=== PATIENT | female | born 1965 | race Caucasian/White ===

== ENCOUNTER 2023-11-13 14:17 | Emergency (ER) | payer OTHER ==
[~2023-11-13] VITALS: Ht 165.1 cm; Wt 99.8 kg
[2023-11-13 14:21] VITALS: BP 122/59; PULSE 57; RESP 20; TEMP 98.4; O2SAT 98
[2023-11-13] MEDS: CYCLOBENZAPRINE 10 MG TAB PO ONE (14:55)
[2023-11-13] MEDS: LIDOCAINE 5% 1 EA PATCH TP ONE (14:55)
[2023-11-13] MEDS: KETOROLAC 30 MG/ML VIAL IM ONE (14:55)
[2023-11-13] MEDS ORDERED: IBUP-2213 PO (17:32)
[2023-11-13] MEDS ORDERED: LID5T TP (17:32)
[2023-11-13] MEDS ORDERED: CYCL-711 PO (17:32)
[2023-11-13 18:02] VITALS: BP 110/50; PULSE 58; O2SAT 94
== END 2023-11-13 18:02 | disposition home or self-care (01) ==
LOC: MED 14:17
DX: S39.012A Strain of muscle, fascia and tendon of lower back, initial encounter (principal); S70.02XA Contusion of left hip, initial encounter; M79.662 Pain in left lower leg; Z79.899 Other long term (current) drug therapy; W01.198A Fall on same level from slipping, tripping and stumbling with subsequent striking against other object, initial encounter; Y93.89 Activity, other specified; Y92.89 Other specified places as the place of occurrence of the external cause; Y99.8 Other external cause status
CPT/HCPCS: 73502; 96372; 99283; J1885; Q0092